=== PATIENT | male | born 1970 | race Caucasian/White ===

== ENCOUNTER 2021-02-18 11:27 | Emergency (ER) | payer SELFPAY ==
[2021-02-18] MEDS ORDERED: Acetaminophen 500 MG TAB ONE (11:55)
== END 2021-02-18 12:00 | disposition home or self-care (01) ==
LOC: NAV ERS 11:27
DX: I10 Essential (primary) hypertension (principal); F17.210 Nicotine dependence, cigarettes, uncomplicated; Z79.899 Other long term (current) drug therapy
CPT/HCPCS: 93005; 94760